=== PATIENT | male | born 1965 | race Caucasian/White ===

== ENCOUNTER → 2023-05-23 | Outpatient (CLI) | payer SELFPAY ==
--- NOTE | 2023-05-23 13:49 | CT_ITS ---
EXAM: CT RIGHT LOWER EXTREMITY WITHOUT INTRAVENOUS CONTRAST CLINICAL INDICATION: templating for right ASHLEY TECHNIQUE: Helically acquired images were obtained of the right lower extremity without intravenous contrast. 2-D reformats were performed by the technologist. CTDIvol = ( 14.07 ) mGy, DLP = ( 915.79 ) mGycm This CT exam was performed using one or more of the following dose reduction techniques: automated exposure control, adjustment of the mA and/or kV according to patient size, and/or use of iterative reconstruction technique. COMPARISON: No relevant prior studies available. FINDINGS: BONES/JOINTS: Severe osteoarthrosis involving the right hip. Preservation of the joint space. No acute or healing fracture or malalignment. No other unusual lytic or sclerotic lesions of bone. SOFT TISSUES: Fat-containing umbilical hernia. No soft tissue swelling or gas. No radiopaque foreign body. OTHER FINDINGS: No free fluid in the pelvis. CT/Extremity Lower without Contra IMPRESSION: Severe osteoarthrosis involving the right hip. Electronically Signed: Esteban Gonzáles MD at 22:34 EST ,
== END | disposition home or self-care (01) ==
LOC: CT 13:43
PROVIDERS: PCP Physician Assistant; Referring Provider Orthopaedic Surgery; Visit Provider Orthopaedic Surgery
DX: M16.11 Unilateral primary osteoarthritis, right hip (principal)
CPT/HCPCS: 73700

== ENCOUNTER 2023-06-11 05:25 | Day surgery (SDC) | payer SELFPAY ==
[2023-05-28 15:57] LABS: Magnesium 2.3 mg/dL (1.6-2.6)
[2023-05-28 16:01] LABS: Hemoglobin A1c 5.8 % (3.8-5.6)
[2023-05-30 05:07] LABS: Fructosamine 237 umol/L (0-285)
[2023-06-11] VITALS (9 sets, daily range): BP systolic 107–131; BP diastolic 60–89; PULSE 65–89; RESP 16–18; TEMP 36.1–36.8; O2SAT 93–100; BMI 36.1
--- NOTE | 2023-06-11 | HIP_PTH ---
PATIENT: AURORA OLMEDO LOC: [facility] [place] U#:[id number] AGE/SX: 58/M ROOM: RE06/11/[address]: Dr. Klaus Cowan DO : 1965 BED: DIS: 06/11/2023 SPEC #: [id number] RECD: 06/11/23 11:50 STATUS: JAMMIE REOralia #: [id number] VU: 06/11/23 00:[address]: Klaus Cowan DEPT: SURGICAL PATHOLOGY RECD BY: Obie Rodriguez ENTERED: 06/11/23 11:50 SP TYPE: TOTAL HIP OTHR DR: Joshua Garcia PA-C Tissues: Hip, NOS Procedures: Decalcification bone/plaque Surgery Specimen Level IV HEADER OPERATION: ERAS, total hip replacement robotic arm assist PRE-OP DIAGNOSIS: Right hip degenerative joint disease TISSUE SUBMITTED: Right femoral head and debrided bone and tissue MICROSCOPIC DIAGNOSIS Bone and tissue of right hip, total hip resection: Severe degenerative joint disease. Synovium with mild chronic inflammation. AM:margarita 06/14/2023 MICROSCOPIC DESCRIPTION Slides are reviewed. GROSS DESCRIPTION Received is one container labeled with the patient's name and designated right femoral head and debrided tissue. The specimen consists of a slightly distorted lara femoral head measuring 6.0 x 5.5 x 5.0 cm. The articular surface displays prominent osteophyte formation, eburnation and bone erosion. Also present in the specimen container are multiple irregular fragments of bone, bone reamings and pink-yellow soft tissue measuring in aggregate 10.0 x 8.0 x 2.0. Head Kiln Operator sections are submitted in two cassettes as follows: 1 - bone reamings and soft tissue, 2 - bone after decalcification. / AM:margarita 06/11/2023 :5 CPT: 56583, 51467
[2023-06-11] MEDS: Lactated Ringers 1,000 ML 999 ML IV ×2 (06:09→10:35)
[2023-06-11] MEDS: Magnesium 1 GM over 15 mins IV (06:11)
[2023-06-11] MEDS: Scopolamine 1mg/72hr Patch 1 PATCH TD (06:11)
[2023-06-11] MEDS: Gabapentin 600 MG Tablet PO (06:11)
[2023-06-11] MEDS: Acetaminophen 500 MG Tablet 1000 MG PO (06:12)
[2023-06-11] MEDS: Celecoxib 200 MG Capsule 400 MG PO (06:12)
[2023-06-11 06:41] LABS: Bedside Glucose 106 mg/dL (74-106)
--- NOTE | 2023-06-11 07:19 | HP.PCM_ITS ---
History and Physical Date of Admission: 06/11/23 [facility] [address] [place] [address] OFFICE VISIT Date of Service: 05/03/23 MR#: [id number] Acct: [id number] Name: AURORA OLMEDO Rep #: [id number] : 1965 Provider: Dr. Klaus Cowan DO Age/Sex: 58/M [place] [facility] [place] Status: Signed Intake Vital Signs 05/03/2308:37 Height 5 ft 10 in Weight: 254 lb 6 oz BMI 36.5 Intake Visit Reasons: RIGHT HIP Chief Complaint: Right hip Accompanied by: Self Allergies No Known Allergies Allergy (Unverified 05/03/23 08:37) Medications atorvastatin 20 mg tablet 20 mg PO DAILY 05/03/23 [History Confirmed 05/03/23] meloxicam 7.5 mg tablet 7.5 mg PO DAILY 05/03/23 [History Confirmed 05/03/23] metformin 500 mg tablet 500 mg PO BID 05/03/23 [History Confirmed 05/03/23] PFSH Surgical History (Updated 05/03/23 @ 08:41 by Last Perez RN) History of cholecystectomy Family History (Updated 05/03/23 @ 08:42 by Last Perez, ELPIDOI) Father Multiple sclerosisMother Heart disease HPI RIGHT HIP Details: Parts of this documentation were recorded by a scribe, this documentation accurately reflects the service provided and the decisions made by me, Dr. Klaus Cowan, 05/03/23 0837. AURORA OLMEDO is a 58 year old M here today for right hip pain for 1 year. Pt states the pain is anterior but moves around to posterior when walking. Pain does radiate to the groin area. Pt states that if he lifts too heavy it makes the pain worse. Pt states that Meloxicam and a good nights rest make it better. Denies any surgery to right hip, denies any injections to hip. Pt has tried manager medicare without relief. Pain is significant towards the end of the day or when riding in a vehicle. Ortho Exam General General: Yes no acute distress Neurologic: Yes alert and Yes oriented x3 Psychologic: Yes reasonable and appropriate Right Hip Skin: No Ecchymosis, No soft tissue swelling and No Erythema Special Tests: No TTP Greater Troch HIP: Folliculitis, no erythema, 0 internal rotation with groin pain, ext 30 degrees crepitation, 5/5 hip flex, plantar 2/4 pedal pulse, EHL tibialis anterior gastrocsoleus intact. Head: Normocephalic Atraumatic Chest: symmetrical rise, non-labored breathing, no audible wheeze Abdomen: no guarding, non-rigid Supplemental Info 05/03/2023 x-ray right hip is advanced joint space narrowing there is large bone spurs Coding Level of Care Code Off vis,new,level 3 Diagnoses Right hip pain M25.551 Assessment and Plan Assessment and Plan (1) Right hip pain: Status: Acute Orders: Orders HIP, UNI W/ Pelvis 2-3 Views Today M25.551 - Pain in right hip Plan Patient has advanced right hip arthrosis he is requesting total hip arthroplasty he has done anti-inflammatories and resident care coordinator without relief. Obtained Xrays of patient's right hip. Personally reviewed Xrays. There is no obvious fracture, dislocation, or lucency noted however he does have advanced hip arthrosis which correlates with his groin pain. . Treatment options include NSAID, PT, injections, hip replacement. Discussed activity post operatively and I would not recommend he have a hip replacement and continue to jump out of the [facility] , as I explained the implant has a wedge-shaped design and high impact like this could split his femur causing fracture and complications , he understands this is a lifetime restriction for him . We also discussed 3 months of hip precautions strict for the first 6 weeks. Discussed right ASHLEY with demonstration model. I also counseled him on using hot compresses for a week before to during and hot showers with the soap that was dispensed to clear up his folliculitis and lower risk of infection. Discussed approach. Risks, benefits and alternatives of surgery reviewed including but not limited to bleeding, infection, nerve, foot drop, artery and/or tissue damage, fracture, VTE, leg length discrepancy, dislocation, need for hip precautions, continued pain and expected post-operative course. , fully recover up to 2 years, soreness to posterior lateral 3 to 4 months. PT at a facility is recommended postoperatively. Discussed stopping the meloxicam 7 days prior to surgery And for the 3 weeks postoperatively while on blood thinner. Follow up in as needed or sooner if pain, swelling, numbness or associated symptoms, or concerns develop. Tentative surgery date 06/11/2023 same-day surgery He will need medical clearance. CT scan for MAKOplasty All questions answered. Patient in agreement of plan. 05/03/23 0959 <Electronically signed by Klaus Cowan DO> Date Klaus Cowan DO Cosigner Signature: Date (if applicable) I have examined the patient and the H&P has been reviewed. There are no clinical changes since date of exam.
[2023-06-11] MEDS: Cefazolin 2 GM in 0.9% Normal Saline (100mL Bag) 100 ML IV ×2 (07:23→12:05)
[2023-06-11] MEDS: TRANEXAMIC ACID 2,000 MG in 0.9% Normal Saline (100mL Bag) 100 ML 660 MG IV (07:33)
[2023-06-11] MEDS: dexAMETHasone 10 MG/ML Vial IV (07:43)
--- NOTE | 2023-06-11 10:02 | PCM.OP.BLANK ---
Operative Report Date of Procedure: 06/11/23 Preoperative diagnosis: Right hip DJD Postoperative diagnosis: Same Procedure: CT-guided Makoplasty assisted right total hip arthroplasty Implants: Susannah Accolade II stem size 5, 127 degree neck angle +2.5 neck length 56mm Trident II acetabular shell with 40 mm cancellous screw 36 mm ceramic head, 10 degree Trident X3 polyethylene insert. Anesthesia: Spinal EBL: 175 cc Complications: None Condition: Stable to PACU Business Office Assistant Joey Reynaga. My physician volleyball assistant coach was a vital part of this case. He was important in appropriate retraction during the case, and protection of soft tissues during procedure. His intimate knowledge of the case and my steps aided in safe and expedient completion of the procedure as well as appropriate position of the extremity during the case. He was also vital in assisting with closure under my direct supervision. Indication for procedure: This is a 58-year-old male who has had long-standing arthrosis of the hip who has failed conservative treatment and wished to undergo total hip arthroplasty. We did discuss operative versus nonoperative intervention including risks of bleeding, infection , nerve artery tissue damage, need for further surgery, fracture, leg length discrepancy dislocation blood clot and need for postoperative physical therapy and postoperative expectations. An informed consent was signed. Procedure: Patient was met in the preoperative holding area once again the operative extremity was identified by both patient and physician and was marked. Patient was met by anesthesia . Anesthesia was started. patient was then positioned in the lateral decubitus position on a well-padded pegboard with an axillary roll. All bony prominences were checked and padded. The patient was prepped and draped in the usual sterile fashion. A timeout was called to ensure the proper patient procedure and extremity were being contemplated. Anatomic landmarks were palpated and marked for a standard posterior lateral approach. Prior to this the ASIS was palpated and 3 fingerbreadths proximal to this 3 pins were placed at a 45 degree angle into the iliac crest with good purchase, stab incisions were made with a 15 blade into the skin prior to placement. The Makoplasty array was then secured. A 10 blade scalpel was used to make a posterior incision through the skin and subcutaneous tissue. retractors were used and electrocautery was used to maintain meticulous hemostasis and dissect full-thickness flaps until the gluteal fascia was reached. The gluteal fascia was incised in line with the gluteal fibers. The bursal tissue was then freed from the underside and a Charnley retractor was placed. The femoral trochanteric checkpoint was placed and leg length was assessed using the trochanteric checkpoint and an EKG lead that was placed on the knee prior to prepping the leg .the fat pad was then elevated off of the external rotators with electrocautery and the external rotators were dissected off of the greater trochanter including the piriformis and were tagged with #1 Ethibond for later repair. The joint capsule opened with posterior trapdoor technique. The hip was surgically dislocated. The measurement on the preoperative CT from the top of the lesser trochanter to the femoral neck cut was marked Hohmann was placed around the lesser trochanter. A neck cutting guide was used to darion the neck with a Bovie and an oscillating saw was used complete the femoral neck cut. The femoral head was then removed and sized. We then turned our attention to the acetabulum. A Bovie was used to make a perforation in the anterior joint capsule and a Lane retractor was placed this was repeated in the 6 o'clock position and a wide joseluis was placed there. With a long handled knife the labral and pulvinar tissue were removed. We then registered the acetabulum with the pointing array and confirmed our landmarks. Once the socket was thoroughly prepared and labral tissue and pulvinar was removed we single reamed with the robotic arm. We then used the robotic arm to position the acetabular implant and impacted it into place under robotic guidance. We then proceeded to place a posterior superior screw by drilling first measuring and inserting the screw. We then inserted a trial liner. And turned our attention back to the femur at this point a femoral elevator was used. As well as a pointed wide Hohmann around the lesser trochanter and a Hohmann to help retract the gluteus medius. A box chisel was used to remove excess lateral neck followed by a canal finder and a lateralizing reamer. This was followed by sequential broaches. Attention was made of the version within the canal based on preoperative templating. Once the final broach was seated we then trialed reduced the hip it was determined that a 127 degree neck angle with a +2.5 neck length was the appropriate size. We then checked stability with shuck testing as well as flexion and internal rotation. then proceeded with hip extension and checked leg lengths at the knees and heels as well as with the trochanteric checkpoint and knee EKG lead. Even though a +2.5 red 5 long on the robot this was required for hip stability and tensioning. at this point trials were removed. A liner was inserted to the cup. The femoral stem was inserted. We re-trialed and then proceeded to impact the femoral head onto the Price taper. We then surgically reduce the hip check stability again and leg lengths and were satisfied. Betadine rinse was allowed to sit for 5 minutes while everyone changed their gloves. Thorough irrigation was performed. Followed by closure of the external rotators with #2 FiberWire followed by closure of gluteal fascia with #1 Ethibond. 0 Vicryl fat stitches and 2-0 Vicryl subcutaneous stitches and enrique in the skin. [place] were placed in the skin pin sites over the iliac crest and dressed with a Mepilex dressing. The main incision was dressed with a Mepilex ag dressing and an abduction pillow was placed. Patient tolerated the procedure well there was no intraoperative complications all counts were correct and the patient was brought back to the PACU in stable condition
--- NOTE | 2023-06-11 10:04 | DCINST_ITS ---
Discharge Instructions Diet Discharge Diet: No restrictions Activity Weight Bearing Status: Weight bearing as tolerated Dressing / Incision Call your doctor if you observe: Shortness of breath and Chest pain Additional Dressing/Incision Instructions:: Do not shower 72hrs. Begin daily showering warm water antibacterial soap postop day #3( 72hrs Post-operatively) and then daily. Leave the dressing on for 72 hours postoperatively then may remove prior to first shower and change dressing daily after this until no drainage for 2 consecutive days then may leave open to air. Must keep incision clean do not let animals near. follow hip precautions that were reviewed in hospital. Wear compression stockings, may remove at night. Start physical therapy as directed in hospital. Follow prescriptions instructions do not take any other pain medication or differ dosing without consulting your physician. Do not take oral NSAIDs until blood thinner has been completed , then may begin the day after completion if needed . Call Dr. Cowan's office with any concerns. Follow Up Care Please Follow Up With: Klaus Cowan DO When: 2 weeks Test Results: Test results from this visit will be discussed in further detail at your follow- up appointment, if applicable. Discharge Plan Admission Primary Reason for Your Visit: Right total hip arthroplasty Attending Provider: Klaus Cowan Primary Care Provider: Joshua Garcia Discharge Orders/Prescriptions Prescriptions: New acetaminophen [acetaminophen] 500 mg tablet 1,000 mg PO Q6H PRN Qty: 100 0RF cephalexin [cephalexin] 500 mg capsule 1,000 mg PO Q8 Qty: 4 0RF Rx Instructions: take 2 tabs at 9:00 pm and 2 tabs after 5 am when you wake up Eliquis 2.5 mg tablet 2.5 mg PO BID Qty: 42 0RF Rx Instructions: begin morning after surgery. oxycodone 5 mg tablet 5 - 10 mg PO Q4H PRN (Reason: pain) 7 Days Qty: 60 0RF Continued atorvastatin 20 mg tablet 20 mg PO DAILY metformin 500 mg tablet 500 mg PO BID Referrals / Follow Up: Joshua Garcia PA-C [Primary Care Provider] - Disposition Disposition (needs filled in before D/C Order can be placed): Home, Self Care
--- NOTE | 2023-06-11 10:15 | RAD_ITS ---
STUDY: X-RAY - PELVIS AND RIGHT HIP REASON FOR EXAM: Male, 58 years old. Post op in pacu -- in PACU. TECHNIQUE: 2 views of the pelvis and right hip. COMPARISON: None. FINDINGS: There is a right hip arthroplasty in place. There is no periprosthetic fracture. There is adjacent soft tissue gas, compatible with recent surgery. There is a skin staple line along the lateral aspect of the right hip. There is a non-specific bowel gas pattern. There are small calcified phleboliths in the pelvis. Normal bilateral iliac wings, sacroiliac joints and visualized sacrum. Normal bilateral superior and inferior pubic rami. Normal pubic symphysis. Normal bilateral ischial tuberosities. RAD/Hip Min 2 Views (Portable) IMPRESSION: Right hip arthroplasty, with no periprosthetic fracture. Electronically Signed: Gino Ramirez MD at 13:31 EST ,
--- NOTE | 2023-06-11 11:04 | SUR.PHASEI ---
PT HAS SPINAL PREOP. PT HAS GOOD MOVEMENT IN RIGHT LEG/FOOT. PT CAN NOT MOVE LEFT SIDE. PT DID STATE HE FELT MY TOUCH. DR EMMANUEL MADE AWARE. OK WITH PT GOING TO PH 2.
[2023-06-11] MEDS: oxyCODONE 5 MG Tablet PO (11:49)
== END 2023-06-11 15:08 | disposition home or self-care (01) ==
LOC: SDC 05:29 → AC 05:30
PROVIDERS: Anesthesiology; PCP Physician Assistant; Referring Provider Orthopaedic Surgery; Visit Provider Orthopaedic Surgery
PROC: 8E0Y0CZ Robotic Assisted Procedure of Lower Extremity, Open Approach (ICD-10-PCS; CPT 27130; principal; 2023-06-11 07:00)
DX: M16.11 Unilateral primary osteoarthritis, right hip (principal); E11.9 Type 2 diabetes mellitus without complications; E78.00 Pure hypercholesterolemia, unspecified; Z79.899 Other long term (current) drug therapy; Z79.84 Long term (current) use of oral hypoglycemic drugs; Z87.891 Personal history of nicotine dependence
CPT/HCPCS: 27130; 01214; 36415; 73502; 82962; 82985; 83036; 83735; 86850; 86900; 86901; 87081; 88305; 88311; 97162; C1776; J7120; J2405; J3475